=== PATIENT | male | born 1990 | race Caucasian/White ===

== ENCOUNTER 2017-11-23 12:28 | Emergency (ER) | payer OTHER ==
[~2017-11-23] VITALS: Ht 177.8 cm; Wt 92.6 kg
[2017-11-23 12:34] VITALS: TEMP 36.7; Ht 177.8 cm; Wt 92.6 kg
[2017-11-23] MEDS ORDERED: IBUPROFEN 600 MG TAB PO STA (12:58)
--- NOTE | 2017-11-23 13:42 | DIAGNOSTIC IMAGING REPORT ---
R SHOULDER MIN 2 VIEWS ROUTINE CLINICAL HISTORY: Right shoulder pain following injury. COMPARISON: None FINDINGS: Alignment of the right shoulder is anatomic. No fracture or suspicious lesion. There is minimal osteophytosis of the right acromioclavicular joint. Subacromial space appears preserved. IMPRESSION: No fracture or dislocation of the right shoulder. Electronically signed by: Jame Estrella M.D. 11/23/2017 1:41 PM Dictated Date/Time: 11/23/2017 1:40 PM
--- NOTE | 2017-11-23 13:47 | EMERGENCY ROOM VISIT NOTE ---
ED Visit Note First contact with patient: 12:41 CHIEF COMPLAINT: Shoulder pain HISTORY OF PRESENT ILLNESS: This 27-year-old male patient presents to the emergency department by private vehicle complaining of pain in the right shoulder that began about 2 weeks ago, but became much worse since yesterday. Patient states that the pain started after doing a heavy lifting workout at the gym a few weeks ago, and seem to be getting better, but then he did another lifting workout yesterday which seems to aggravate the pain. Today he states that he was tossing a rope over a tree branch and felt a pop in his shoulder with immediate worsening of his pain. There is limitation of motion of the arm because of the pain. The pain is moderate, constant and increases with motion of the hand and arm. The patient states the pain is aching and throbbing and 8/ 10. The patient has taken ibuprofen with some relief of the pain. No previous significant shoulder disease or injury. No numbness or tingling. No neck and no back pain. No chest pain or shortness of breath. No abdominal pain or nausea/ vomiting. No cough. REVIEW OF SYSTEMS: A 6 system review of systems was performed with positives and pertinent negatives in the HPI. ALLERGIES: Reviewed in chart, see below MEDICATIONS: No current medications. PMH: No significant past medical or surgical history. SOCIAL HISTORY: Lives at home. He denies tobacco use. PHYSICAL EXAM: Vital Signs: Reviewed nurse's notes, vital signs stable. GENERAL : Pleasant and cooperative, in no acute distress, but appears to be in pain, well-developed, well-nourished. MUSCULOSKELETAL: There is no deformity in the contour of the right shoulder and there are no gurinder deformities noted. There is no sulcus sign. There is tenderness over the anterior and lateral aspect of the shoulder. The patient's range of motion is limited due to pain. Supraspinatus strength 4/5. There is no clavicle tenderness. No tenderness of the humerus, elbow, wrist, or hand. [employer] strength 5/5. Radial pulse 2+. NECK: No tenderness to palpation over the cervical spine. Normal range of motion of the neck. HEART: Regular rate and rhythm without murmurs gallops or rubs. LUNGS : Clear to auscultation bilaterally without wheezes, rales or rhonchi. No accessory muscle use. No retractions. NEURO: The patient is alert and oriented to person, place, and time. Normal sensation to light and sharp touch. Capillary refill less than 2 seconds. IMAGING: R SHOULDER MIN 2 VIEWS ROUTINE CLINICAL HISTORY: Right shoulder pain following injury. COMPARISON: None FINDINGS: Alignment of the right shoulder is anatomic. No fracture or suspicious lesion. There is minimal osteophytosis of the right acromioclavicular joint. Subacromial space appears preserved. IMPRESSION: No fracture or dislocation of the right shoulder. EMERGENCY DEPARTMENT COURSE: I examined the patient. Differential diagnosis includes shoulder sprain/strain, tendinitis, rotator cuff tear, AC joint separation, shoulder fracture, dislocation, among others. Patient was provided with Motrin and an ice pack for pain. An X-ray of the right shoulder was reviewed by myself and read by the radiologist and shows no acute fracture or dislocation of the right shoulder. Patient was placed in an arm sling under my supervision with the position being satisfactory and he was neurovascularly intact upon recheck. Patient was educated regarding rest and care at home, orthopedic follow-up, and return precautions should his symptoms worsen, he verbalized understanding. Patient was discharged home in stable condition and ambulatory. Current/Historical Medications Miscellaneous Medications None (Patient States No Home Meds) Allergies Coded Allergies: Diphenhydramine (Unverified Allergy, Mild, 05/12/09) Vital Signs Date Time Temp Pulse Resp B/P (MAP) Pulse Ox O2 Delivery O2 Flow Rate FiO2 11/23/17 14:37 70 20 122/89 99 11/23/17 12:34 36.7 75 18 144/96 98 Room Air Medications Administered Medications (Trade) Dose Ordered Sig/Addie Route Start Time Stop Time Status Last Admin Dose Admin Ibuprofen (Motrin Tab) 600 mg NOW STAT PO 11/23/17 12:58 11/23/17 12:59 DC 11/23/17 13:07 600 MG Departure Information Impression Primary Impression: Right shoulder pain Dispostion Home / Self-Care Condition GOOD Referrals No Doctor, Assigned (PCP) Patient Instructions ED Shoulder Pain [facility] Additional Instructions DISCHARGE INSTRUCTIONS & TREATMENT: You have been evaluated and treated in the emergency department today for your right shoulder pain. X-rays today do not show any fracture or dislocation. Rest the arm in a sling until the pain subsides. Apply ice to the shoulder intermittently and frequently over the next 24 hours. Ibuprofen 600 mg and Tylenol 650 mg every 6 hours if needed for pain. For best results, alternate between ibuprofen and Tylenol every 3-4 hours. See your family doctor or an orthopedic surgeon if you don't seem to be improving in the next few days. Please return to the emergency department if you have severe worsening pain in the shoulder, loss of feeling or movement in the arm, or any other concerns. Work Instructions Return To Work: 2 days Problem Qualifiers Primary Impression: Right shoulder pain Chronicity: acute Qualified Codes: M25.511 - Pain in right shoulder
[2017-11-23 14:37] VITALS: BP 122/89; PULSE 70; O2SAT 99
== END 2017-11-23 14:38 | disposition home or self-care (01) ==
LOC: C.EDB 12:30 → C.EDD 14:38
DX: M25.511 Pain in right shoulder (principal)